=== PATIENT | female | born 1950 | race Caucasian/White ===

== ENCOUNTER 2017-10-21 11:03 | Inpatient (IN) | payer BC ==
[2017-10-21] MEDS: LACTATED RINGER S IV (12:00)
[2017-10-21 12:07] LABS: ADD MAN DIFF? NO
[2017-10-21 12:10] LABS: BASOPHILS % 0.4 % (0.0-2.0); EOSINOPHILS # 0.1 10^3/ul (0.0-0.5); EOSINOPHILS % 0.9 % (0.0-7.0); HEMATOCRIT 40.9 % (37.0-47.0); HEMOGLOBIN 13.8 g/dl (12.0-16.0); LYMPHOCYTES # 1.3 10^3/ul (0.8-2.9); LYMPHOCYTES % 11.7 % (15.0-51.0); MEAN CORPUSCULAR HEMOGLOBIN 28.8 pg (29.0-33.0); MEAN CORPUSCULAR HGB CONC 33.7 g/dl (32.0-37.0); MEAN CORPUSCULAR VOLUME 85.2 fl (82.0-101.0); MEAN PLATELET VOLUME 8.7 fl (7.4-10.4); MONOCYTE # 0.9 10^3/ul (0.3-0.9); MONOCYTES % 7.7 % (0.0-11.0); NEUTROPHIL # 8.7 10^3/ul (1.6-7.5); NEUTROPHILS % 79.1 % (39.0-77.0); PLATELET COUNT 267 10^3/UL (140-415); RED CELL DISTRIBUTION WIDTH 12.7 % (11.5-14.5)
[2017-10-21 12:27] LABS: LACTIC ACID 1.1 mmol/L (0.5-2.0)
[2017-10-21 12:29] LABS: INR 0.92; PROTIME 12.4 Sec (11.9-14.9)
[2017-10-21] MEDS ORDERED: ACETAMINOPHEN 325 MG TAB PO (12:30)
[2017-10-21] MEDS ORDERED: ONDANSETRON 4 MG INJ IV (12:30)
[2017-10-21 12:31] LABS: ALANINE AMINOTRANSFERASE 27 IU/L (13-69); ALBUMIN 4.3 g/dl (3.3-4.9); ALKALINE PHOSPHATASE 102 IU/L (42-121); ANION GAP 16 (8-16); ASPARTATE AMINO TRANSFERASE 21 IU/L (15-46); BILIRUBIN,INDIRECT 0.3 mg/dl (0-1.1); BILIRUBIN,TOTAL 0.3 mg/dl (0.2-1.3); BLOOD UREA NITROGEN 12 mg/dl (7-20); CARBON DIOXIDE 25 mmol/L (21-31); CHLORIDE 105 mmol/L (97-110); GLUCOSE 95 mg/dl (70-220); PARTIAL THROMBOPLASTIN TIME 28.6 Sec (25.0-35.0); SODIUM 142 mmol/L (135-144); TOTAL PROTEIN 7.6 g/dl (6.1-8.1)
[2017-10-21 12:45] LABS: TROPONIN-I < 0.012 ng/ml (0.00-0.12)
[2017-10-21] MEDS: CEFEPIME 2GM/50 ML (PMX) 50 ML IVPB ×2 (13:06→21:46)
[2017-10-21 13:25] LABS: LACTIC ACID 0.9 mmol/L (0.5-2.0)
[2017-10-21] MEDS: VANCOMYCIN 1 GM (PMX) 250 ML IVPB (13:29)
[2017-10-21] MEDS ORDERED: NITROGLYCERIN (SL) 0.4 MG TAB SL (14:00)
[2017-10-21] MEDS ORDERED: NA PHOSPHATE/BIPHOS 133 ML ENEMA PR (14:00)
[2017-10-21] MEDS ORDERED: NACL 0.9% 3 ML SYG IV (14:00)
[2017-10-21] MEDS: ALBUTEROL HFA 8 GM INHALER INH ×3 (14:00→21:50)
[2017-10-21] MEDS ORDERED: DOCUSATE SODIUM 100 MG CAP PO (14:00)
[2017-10-21] MEDS ORDERED: VANCOMYCIN IV PER PHARMACY XX (14:00)
[2017-10-21] MEDS ORDERED: hydrOXYzine HCL 10 MG TAB PO (14:00)
[2017-10-21] MEDS ORDERED: LORAZEPAM 2 MG INJ IV (14:00)
[2017-10-21] MEDS ORDERED: hydrALAzine 20 MG INJ IV (14:00)
[2017-10-21] MEDS ORDERED: CEFEPIME 2GM/50 ML (PMX) 50 ML IVPB (14:00)
[2017-10-21 15:02] LABS: ADD UMIC YES; UR ASCORBIC ACID NEGATIVE (NEGATIVE); UR BILIRUBIN (Dip) NEGATIVE (NEGATIVE); UR BLOOD (Dip) NEGATIVE (NEGATIVE); UR CLARITY CLEAR (CLEAR); UR COLOR YELLOW (YELLOW); UR GLUCOSE (Dip) NEGATIVE (NEGATIVE); UR KETONES (Dip) NEGATIVE (NEGATIVE); UR LEUKOCYTE ESTERASE (Dip) 1+ Leu/ul (NEGATIVE); UR NITRITE (Dip) NEGATIVE (NEGATIVE); UR RBC 1 /HPF (0-5); UR SPECIFIC GRAVITY (Dip) 1.005 (1.003-1.030); UR TOTAL PROTEIN (Dip) NEGATIVE (NEGATIVE); UR UROBILINOGEN (Dip) NEGATIVE (NEGATIVE); UR WBC 5 /HPF (0-5)
[2017-10-21 15:17] LABS: LACTIC ACID 0.8 mmol/L (0.5-2.0)
[2017-10-21] MEDS: ALBUTEROL/IPRATROPIUM (NEB) 3 ML AMP HHN (15:40)
[2017-10-21] MEDS: SOD CHLORIDE 0.45% 1,000 ML IV (16:04)
[2017-10-21 17:24] LABS: LACTIC ACID 3.1 mmol/L (0.5-2.0)
[2017-10-21 20:11] LABS: LACTIC ACID 0.8 mmol/L (0.5-2.0)
[2017-10-21] MEDS: HEPARIN 5,000 UNIT/0.5 ML VIAL SC (21:44)
[2017-10-21] MEDS: SALMETEROL/FLUTICASONE 100/50 INHA INH (21:45)
[2017-10-21] MEDS: RANITIDINE 150 MG TAB PO (21:49)
[2017-10-21] MEDS: DOCUSATE SODIUM 100 MG CAP PO (21:49)
[2017-10-21] MEDS: LEVETIRACETAM 500 MG TAB PO (21:50)
[2017-10-21 22:31] LABS: LACTIC ACID 0.8 mmol/L (0.5-2.0)
[2017-10-22] MEDS: ALBUTEROL HFA 8 GM INHALER INH ×6 (02:05→21:19)
[2017-10-22 02:50] LABS: LACTIC ACID 1.4 mmol/L (0.5-2.0)
[2017-10-22] MEDS: SOD CHLORIDE 0.45% 1,000 ML IV ×2 (02:57→10:04)
[2017-10-22 06:30] LABS: ADD MAN DIFF? NO
[2017-10-22 06:45] LABS: BASOPHILS % 0.8 % (0.0-2.0); EOSINOPHILS # 0.3 10^3/ul (0.0-0.5); EOSINOPHILS % 6.3 % (0.0-7.0); HEMATOCRIT 37.9 % (37.0-47.0); HEMOGLOBIN 12.5 g/dl (12.0-16.0); LYMPHOCYTES # 1.1 10^3/ul (0.8-2.9); LYMPHOCYTES % 27.3 % (15.0-51.0); MEAN CORPUSCULAR HEMOGLOBIN 29.4 pg (29.0-33.0); MEAN CORPUSCULAR VOLUME 89.2 fl (82.0-101.0); MEAN PLATELET VOLUME 8.4 fl (7.4-10.4); MONOCYTE # 0.4 10^3/ul (0.3-0.9); NEUTROPHIL # 2.3 10^3/ul (1.6-7.5); NEUTROPHILS % 56.3 % (39.0-77.0); PLATELET COUNT 219 10^3/UL (140-415); RED BLOOD COUNT 4.25 10^6/ul (4.20-5.40); RED CELL DISTRIBUTION WIDTH 12.8 % (11.5-14.5)
[2017-10-22 07:03] LABS: CHOLESTEROL 184 mg/dl (100-200)
[2017-10-22 07:03] LABS: CHOL/HDL RATIO 3.1 RATIO; HDL CHOLESTEROL 58 mg/dl (33-92); LDL CHOLESTEROL,CALCULATED 95 mg/dl; TRIGLYCERIDES 157 mg/dl (0-149)
[2017-10-22 07:13] LABS: ANION GAP 11 (8-16); BLOOD UREA NITROGEN 9 mg/dl (7-20); CALCIUM 9.6 mg/dl (8.4-10.2); CARBON DIOXIDE 31 mmol/L (21-31); CHLORIDE 110 mmol/L (97-110); CREATININE 0.66 mg/dl (0.44-1.00); GLUCOSE 114 mg/dl (70-220); MAGNESIUM 2.3 mg/dl (1.7-2.5); PHOSPHORUS 3.3 mg/dl (2.5-4.9); POTASSIUM 4.8 mmol/L (3.5-5.1); SODIUM 147 mmol/L (135-144)
[2017-10-22 07:17] LABS: LACTIC ACID 1.5 mmol/L (0.5-2.0)
[2017-10-22 07:34] LABS: THYROID STIMULATING HORMONE 0.807 MIU/L (0.465-4.680)
[2017-10-22 07:48] LABS: HEMOGLOBIN A1C 5.8 % (0-5.9)
[2017-10-22] MEDS: CEFEPIME 2GM/50 ML (PMX) 50 ML IVPB ×2 (09:27→21:07)
[2017-10-22] MEDS: SALMETEROL/FLUTICASONE 100/50 INHA INH ×2 (09:27→21:18)
[2017-10-22] MEDS: LEVETIRACETAM 500 MG TAB PO ×2 (09:27→21:06)
[2017-10-22] MEDS: DOCUSATE SODIUM 100 MG CAP PO ×2 (09:27→21:00)
[2017-10-22] MEDS: HEPARIN 5,000 UNIT/0.5 ML VIAL SC ×2 (10:19→21:17)
[2017-10-22 14:21] LABS: LACTIC ACID 1.4 mmol/L (0.5-2.0)
[2017-10-22] MEDS ORDERED: CEPASTAT LOZENGE MT (16:30)
[2017-10-22] MEDS: GUAIFENESIN 20 MG/ML 5ML CUP PO (18:14)
[2017-10-22] MEDS: RANITIDINE 150 MG TAB PO (21:06)
[2017-10-23] MEDS: SOD CHLORIDE 0.45% 1,000 ML IV ×2 (01:21→16:19)
[2017-10-23] MEDS: ALBUTEROL HFA 8 GM INHALER INH ×6 (01:21→22:12)
[2017-10-23 06:26] LABS: ADD MAN DIFF? NO
[2017-10-23 06:35] LABS: BASOPHILS % 0.8 % (0.0-2.0); EOSINOPHILS # 0.3 10^3/ul (0.0-0.5); HEMATOCRIT 36.5 % (37.0-47.0); HEMOGLOBIN 12.2 g/dl (12.0-16.0); LYMPHOCYTES % 25.1 % (15.0-51.0); MEAN CORPUSCULAR HGB CONC 33.4 g/dl (32.0-37.0); MEAN CORPUSCULAR VOLUME 86.7 fl (82.0-101.0); MEAN PLATELET VOLUME 8.8 fl (7.4-10.4); MONOCYTE # 0.3 10^3/ul (0.3-0.9); NEUTROPHIL # 2.2 10^3/ul (1.6-7.5); NEUTROPHILS % 57.6 % (39.0-77.0); PLATELET COUNT 226 10^3/UL (140-415); RED BLOOD COUNT 4.21 10^6/ul (4.20-5.40); RED CELL DISTRIBUTION WIDTH 12.9 % (11.5-14.5)
[2017-10-23 06:35] LABS: WHITE BLOOD COUNT 3.9 10^3/ul (4.8-10.8)
[2017-10-23 07:21] LABS: ANION GAP 15 (8-16); BLOOD UREA NITROGEN 9 mg/dl (7-20); CALCIUM 9.8 mg/dl (8.4-10.2); CARBON DIOXIDE 25 mmol/L (21-31); CHLORIDE 108 mmol/L (97-110); CREATININE 0.62 mg/dl (0.44-1.00); GLUCOSE 113 mg/dl (70-220); SODIUM 144 mmol/L (135-144)
[2017-10-23] MEDS: DOCUSATE SODIUM 100 MG CAP PO ×2 (09:00→21:00)
[2017-10-23] MEDS: LEVETIRACETAM 500 MG TAB PO ×2 (09:31→20:59)
[2017-10-23] MEDS: GUAIFENESIN 20 MG/ML 5ML CUP PO (09:31)
[2017-10-23] MEDS: SALMETEROL/FLUTICASONE 100/50 INHA INH ×2 (09:32→21:01)
[2017-10-23] MEDS: CEFEPIME 2GM/50 ML (PMX) 50 ML IVPB ×2 (09:32→20:58)
[2017-10-23] MEDS: HEPARIN 5,000 UNIT/0.5 ML VIAL SC (09:47)
[2017-10-23] MEDS: ALBUTEROL/IPRATROPIUM (NEB) 3 ML AMP HHN ×3 (13:16→20:48)
[2017-10-23] MEDS: RANITIDINE 150 MG TAB PO (20:59)
[2017-10-24] MEDS: ALBUTEROL HFA 8 GM INHALER INH ×6 (02:20→23:00)
[2017-10-24] MEDS: SOD CHLORIDE 0.45% 1,000 ML IV ×2 (05:02→08:17)
[2017-10-24 06:14] LABS: ADD MAN DIFF? NO
[2017-10-24 06:17] LABS: BASOPHILS % 0.7 % (0.0-2.0); EOSINOPHILS # 0.3 10^3/ul (0.0-0.5); EOSINOPHILS % 6.4 % (0.0-7.0); HEMATOCRIT 37.4 % (37.0-47.0); HEMOGLOBIN 12.5 g/dl (12.0-16.0); LYMPHOCYTES % 21.1 % (15.0-51.0); MEAN CORPUSCULAR HEMOGLOBIN 29.1 pg (29.0-33.0); MEAN CORPUSCULAR HGB CONC 33.4 g/dl (32.0-37.0); MEAN PLATELET VOLUME 8.8 fl (7.4-10.4); MONOCYTE # 0.4 10^3/ul (0.3-0.9); MONOCYTES % 8.7 % (0.0-11.0); NEUTROPHIL # 2.8 10^3/ul (1.6-7.5); NEUTROPHILS % 62.7 % (39.0-77.0); PLATELET COUNT 240 10^3/UL (140-415); RED CELL DISTRIBUTION WIDTH 12.7 % (11.5-14.5)
[2017-10-24 06:17] LABS: WHITE BLOOD COUNT 4.5 10^3/ul (4.8-10.8)
[2017-10-24 06:52] LABS: ANION GAP 12 (8-16); BLOOD UREA NITROGEN 11 mg/dl (7-20); CALCIUM 9.7 mg/dl (8.4-10.2); CARBON DIOXIDE 27 mmol/L (21-31); CHLORIDE 108 mmol/L (97-110); CREATININE 0.66 mg/dl (0.44-1.00); GLUCOSE 100 mg/dl (70-220); POTASSIUM 4.2 mmol/L (3.5-5.1); SODIUM 143 mmol/L (135-144)
[2017-10-24] MEDS ORDERED: NEOSTIGMINE 3 MG/3 ML SYRINGE (07:00)
[2017-10-24] MEDS ORDERED: GLYCOPYRROLATE 0.4 MG INJ (07:00)
[2017-10-24] MEDS ORDERED: CEFAZOLIN 1 GM INJ (07:00)
[2017-10-24] MEDS: LEVETIRACETAM 500 MG TAB PO ×2 (09:00→23:25)
[2017-10-24] MEDS: DOCUSATE SODIUM 100 MG CAP PO ×2 (09:00→23:25)
[2017-10-24] MEDS: CEFEPIME 2GM/50 ML (PMX) 50 ML IVPB (09:43)
[2017-10-24] MEDS: SALMETEROL/FLUTICASONE 100/50 INHA INH ×2 (09:44→22:35)
[2017-10-24] MEDS ORDERED: morphine 10 MG INJ (15:09)
[2017-10-24] MEDS ORDERED: PROPOFOL 100 ML (15:22)
[2017-10-24] MEDS ORDERED: ROCURONIUM 50 MG INJ (15:22)
[2017-10-24] MEDS ORDERED: PHENYLephrine (100 MCG/ML) 5ML SYG ×2 (15:26→17:01)
[2017-10-24] MEDS: LIDOCAINE 1%/EPI 30 ML INJ (16:20)
[2017-10-24] MEDS: BUPIVACAINE 0.5% (SDV) 30 ML INJ (16:20)
[2017-10-24] MEDS ORDERED: DEXAMETHASONE 4 MG/ML 1 ML INJ (16:28)
[2017-10-24] MEDS ORDERED: ONDANSETRON 4 MG INJ (16:28)
[2017-10-24] MEDS ORDERED: KETOROLAC 30 MG INJ (17:42)
[2017-10-24] MEDS ORDERED: KETOROLAC 30 MG INJ IV ×2 (18:00→18:30)
[2017-10-24] MEDS ORDERED: ALBUTEROL 0.083% (NEB) 2.5 MG/3 ML AMP HHN (18:30)
[2017-10-24] MEDS ORDERED: FENTAnyl 50 MCG/ML VIAL IV (18:30)
[2017-10-24] MEDS ORDERED: hydrALAzine 20 MG INJ IV (18:30)
[2017-10-24] MEDS ORDERED: METOCLOPRAMIDE 10 MG INJ IV (18:30)
[2017-10-24] MEDS ORDERED: MIDAZOLAM 1 MG/ML 2 ML INJ IV (18:30)
[2017-10-24] MEDS ORDERED: HYDROmorphONE (0.2 MG/ML) 10ML SYG IV ×2 (18:30)
[2017-10-24] MEDS ORDERED: EPHEDrine SULFATE 50 MG/5 ML SYG IV (18:30)
[2017-10-24] MEDS ORDERED: KETOROLAC 15 MG INJ IV (18:30)
[2017-10-24] MEDS ORDERED: LABETALOL HCL 20MG INJ IV (18:30)
[2017-10-24] MEDS ORDERED: MEPERIDINE 25 MG INJ IV (18:30)
[2017-10-24] MEDS ORDERED: ONDANSETRON 4 MG INJ IV (18:30)
[2017-10-24] MEDS ORDERED: DIPHENHYDRAMINE 50 MG INJ IV (18:30)
[2017-10-24] MEDS: FENTAnyl 50 MCG/ML VIAL IV ×3 (18:35→20:06)
[2017-10-24] MEDS: HYDROmorphONE (0.2 MG/ML) 10ML SYG IV ×2 (21:56→22:21)
[2017-10-24] MEDS: LACTATED RINGER'S 1,000 ML IV (23:01)
[2017-10-24] MEDS: RANITIDINE 150 MG TAB PO (23:19)
[2017-10-25] MEDS: HYDROCODONE/APAP (5/325) TAB PO ×4 (02:06→21:42)
[2017-10-25] MEDS: ALBUTEROL HFA 8 GM INHALER INH ×6 (02:26→21:41)
[2017-10-25] MEDS: LACTATED RINGER'S 1,000 ML IV ×2 (03:51→13:54)
[2017-10-25] MEDS: ENOXAPARIN 40 MG/0.4 ML SYG SC (06:33)
[2017-10-25] MEDS: SALMETEROL/FLUTICASONE 100/50 INHA INH ×2 (08:01→20:01)
[2017-10-25] MEDS: DOCUSATE SODIUM 100 MG CAP PO ×2 (08:01→20:01)
[2017-10-25] MEDS: LEVETIRACETAM 500 MG TAB PO ×2 (08:01→20:00)
[2017-10-25 08:52] LABS: ADD MAN DIFF? NO
[2017-10-25 09:00] LABS: BASOPHILS % 0.2 % (0.0-2.0); EOSINOPHILS % 0.2 % (0.0-7.0); HEMATOCRIT 30.9 % (37.0-47.0); HEMOGLOBIN 9.9 g/dl (12.0-16.0); LYMPHOCYTES % 10.4 % (15.0-51.0); MEAN CORPUSCULAR HEMOGLOBIN 28.6 pg (29.0-33.0); MEAN CORPUSCULAR VOLUME 89.3 fl (82.0-101.0); MEAN PLATELET VOLUME 8.8 fl (7.4-10.4); MONOCYTE # 0.6 10^3/ul (0.3-0.9); NEUTROPHIL # 7.5 10^3/ul (1.6-7.5); NEUTROPHILS % 81.9 % (39.0-77.0); PLATELET COUNT 217 10^3/UL (140-415); RED BLOOD COUNT 3.46 10^6/ul (4.20-5.40); RED CELL DISTRIBUTION WIDTH 12.9 % (11.5-14.5)
[2017-10-25 09:00] LABS: WHITE BLOOD COUNT 9.2 10^3/ul (4.8-10.8)
[2017-10-25 10:00] LABS: ANION GAP 12 (8-16); BLOOD UREA NITROGEN 14 mg/dl (7-20); CALCIUM 9.2 mg/dl (8.4-10.2); CARBON DIOXIDE 27 mmol/L (21-31); CHLORIDE 103 mmol/L (97-110); CREATININE 0.72 mg/dl (0.44-1.00); GLUCOSE 114 mg/dl (70-220); POTASSIUM 4.5 mmol/L (3.5-5.1); SODIUM 137 mmol/L (135-144)
[2017-10-25] MEDS: morphine 2 MG INJ IV ×3 (11:03→19:57)
[2017-10-25] MEDS: ONDANSETRON 4 MG INJ IV (11:30)
[2017-10-25] MEDS: RANITIDINE 150 MG TAB PO (20:00)
[2017-10-26] MEDS: morphine 2 MG INJ IV (01:38)
[2017-10-26] MEDS: LACTATED RINGER'S 1,000 ML IV (01:39)
[2017-10-26] MEDS: ALBUTEROL HFA 8 GM INHALER INH ×5 (02:07→23:39)
[2017-10-26] MEDS: HYDROCODONE/APAP (5/325) TAB PO ×3 (05:48→20:24)
[2017-10-26] MEDS: ENOXAPARIN 40 MG/0.4 ML SYG SC (06:08)
[2017-10-26 08:25] LABS: ADD MAN DIFF? NO
[2017-10-26] MEDS: DOCUSATE SODIUM 100 MG CAP PO ×2 (08:36→20:24)
[2017-10-26] MEDS: SALMETEROL/FLUTICASONE 100/50 INHA INH ×2 (08:36→20:25)
[2017-10-26] MEDS: LEVETIRACETAM 500 MG TAB PO ×2 (08:36→20:24)
[2017-10-26 08:37] LABS: BASOPHILS % 0.6 % (0.0-2.0); EOSINOPHILS # 0.2 10^3/ul (0.0-0.5); EOSINOPHILS % 2.7 % (0.0-7.0); HEMATOCRIT 26.1 % (37.0-47.0); HEMOGLOBIN 8.5 g/dl (12.0-16.0); LYMPHOCYTES # 0.8 10^3/ul (0.8-2.9); LYMPHOCYTES % 12.2 % (15.0-51.0); MEAN CORPUSCULAR HEMOGLOBIN 28.9 pg (29.0-33.0); MEAN CORPUSCULAR HGB CONC 32.6 g/dl (32.0-37.0); MEAN CORPUSCULAR VOLUME 88.8 fl (82.0-101.0); MEAN PLATELET VOLUME 9.1 fl (7.4-10.4); MONOCYTE # 0.5 10^3/ul (0.3-0.9); MONOCYTES % 8.4 % (0.0-11.0); NEUTROPHIL # 4.8 10^3/ul (1.6-7.5); NEUTROPHILS % 75.6 % (39.0-77.0); PLATELET COUNT 182 10^3/UL (140-415); RED BLOOD COUNT 2.94 10^6/ul (4.20-5.40)
[2017-10-26 08:37] LABS: WHITE BLOOD COUNT 6.3 10^3/ul (4.8-10.8)
[2017-10-26 08:53] LABS: MAGNESIUM 1.8 mg/dl (1.7-2.5)
[2017-10-26 08:58] LABS: ANION GAP 9 (8-16); BLOOD UREA NITROGEN 10 mg/dl (7-20); CALCIUM 8.6 mg/dl (8.4-10.2); CARBON DIOXIDE 29 mmol/L (21-31); CHLORIDE 103 mmol/L (97-110); CREATININE 0.65 mg/dl (0.44-1.00); GLUCOSE 105 mg/dl (70-220); SODIUM 137 mmol/L (135-144)
[2017-10-26] MEDS: FERROUS SULFATE (EC) 325 MG TAB PO ×2 (16:54→20:24)
[2017-10-26] MEDS: BISACODYL (EC) 5 MG TAB PO (16:55)
[2017-10-26] MEDS: RANITIDINE 150 MG TAB PO (20:24)
[2017-10-27] MEDS: ONDANSETRON 4 MG INJ IV ×3 (00:39→20:09)
[2017-10-27] MEDS: morphine 2 MG INJ IV (00:47)
[2017-10-27] MEDS: ALBUTEROL HFA 8 GM INHALER INH ×6 (02:11→20:14)
[2017-10-27] MEDS: HYDROCODONE/APAP (5/325) TAB PO ×3 (06:42→20:00)
[2017-10-27 07:49] LABS: ADD MAN DIFF? NO
[2017-10-27 07:56] LABS: BASOPHILS % 0.7 % (0.0-2.0); EOSINOPHILS # 0.2 10^3/ul (0.0-0.5); EOSINOPHILS % 3.2 % (0.0-7.0); HEMATOCRIT 23.9 % (37.0-47.0); HEMOGLOBIN 7.9 g/dl (12.0-16.0); LYMPHOCYTES # 0.9 10^3/ul (0.8-2.9); LYMPHOCYTES % 15.6 % (15.0-51.0); MEAN CORPUSCULAR HEMOGLOBIN 29.5 pg (29.0-33.0); MEAN CORPUSCULAR HGB CONC 33.1 g/dl (32.0-37.0); MEAN CORPUSCULAR VOLUME 89.2 fl (82.0-101.0); MONOCYTE # 0.5 10^3/ul (0.3-0.9); MONOCYTES % 8.3 % (0.0-11.0); NEUTROPHILS % 71.7 % (39.0-77.0); PLATELET COUNT 200 10^3/UL (140-415); RED BLOOD COUNT 2.68 10^6/ul (4.20-5.40)
[2017-10-27 07:56] LABS: WHITE BLOOD COUNT 5.6 10^3/ul (4.8-10.8)
[2017-10-27 08:26] LABS: ANION GAP 11 (8-16); BLOOD UREA NITROGEN 8 mg/dl (7-20); CALCIUM 8.7 mg/dl (8.4-10.2); CARBON DIOXIDE 30 mmol/L (21-31); CHLORIDE 102 mmol/L (97-110); CREATININE 0.56 mg/dl (0.44-1.00); GLUCOSE 109 mg/dl (70-220); SODIUM 139 mmol/L (135-144)
[2017-10-27] MEDS: DOCUSATE SODIUM 100 MG CAP PO ×2 (08:45→20:00)
[2017-10-27] MEDS: SALMETEROL/FLUTICASONE 100/50 INHA INH ×2 (08:45→20:14)
[2017-10-27] MEDS: FERROUS SULFATE (EC) 325 MG TAB PO ×2 (08:45→20:00)
[2017-10-27] MEDS: LEVETIRACETAM 500 MG TAB PO ×2 (08:46→20:00)
[2017-10-27 12:14] LABS: IRON 21 ug/dl (35-150)
[2017-10-27 12:23] LABS: % IRON SATURATION 9 % SAT (22-52); TOTAL IRON BINDING CAPACITY 243 ug/dl (241-421)
[2017-10-27] MEDS: MAGNESIUM HYDROXIDE 30ML CUP PO (13:33)
[2017-10-27] MEDS: RANITIDINE 150 MG TAB PO (20:00)
[2017-10-27] MEDS: FLUCONAZOLE 200 MG TAB PO (20:09)
[2017-10-28] MEDS: HYDROCODONE/APAP (5/325) TAB PO ×3 (01:12→19:06)
[2017-10-28] MEDS: ALBUTEROL HFA 8 GM INHALER INH ×6 (02:00→22:49)
[2017-10-28] MEDS: ONDANSETRON 4 MG INJ IV ×2 (06:59→22:46)
[2017-10-28 08:19] LABS: ADD MAN DIFF? NO
[2017-10-28 08:23] LABS: WHITE BLOOD COUNT 5.1 10^3/ul (4.8-10.8)
[2017-10-28 08:23] LABS: BASOPHILS % 0.6 % (0.0-2.0); EOSINOPHILS # 0.2 10^3/ul (0.0-0.5); EOSINOPHILS % 3.7 % (0.0-7.0); HEMATOCRIT 24.7 % (37.0-47.0); LYMPHOCYTES # 0.8 10^3/ul (0.8-2.9); LYMPHOCYTES % 15.4 % (15.0-51.0); MEAN CORPUSCULAR HEMOGLOBIN 29.1 pg (29.0-33.0); MEAN CORPUSCULAR HGB CONC 32.4 g/dl (32.0-37.0); MEAN CORPUSCULAR VOLUME 89.8 fl (82.0-101.0); MEAN PLATELET VOLUME 9.1 fl (7.4-10.4); MONOCYTE # 0.5 10^3/ul (0.3-0.9); MONOCYTES % 10.4 % (0.0-11.0); NEUTROPHIL # 3.6 10^3/ul (1.6-7.5); NEUTROPHILS % 69.5 % (39.0-77.0); PLATELET COUNT 225 10^3/UL (140-415); RED BLOOD COUNT 2.75 10^6/ul (4.20-5.40)
[2017-10-28 09:00] LABS: ANION GAP 9 (8-16); BLOOD UREA NITROGEN 6 mg/dl (7-20); CALCIUM 8.9 mg/dl (8.4-10.2); CARBON DIOXIDE 33 mmol/L (21-31); CHLORIDE 102 mmol/L (97-110); CREATININE 0.62 mg/dl (0.44-1.00); GLUCOSE 110 mg/dl (70-220); POTASSIUM 4.1 mmol/L (3.5-5.1); SODIUM 140 mmol/L (135-144)
[2017-10-28] MEDS: SALMETEROL/FLUTICASONE 100/50 INHA INH ×2 (09:56→20:38)
[2017-10-28] MEDS: DOCUSATE SODIUM 100 MG CAP PO ×2 (09:56→20:37)
[2017-10-28] MEDS: FLUCONAZOLE 200 MG TAB PO ×2 (09:57→20:37)
[2017-10-28] MEDS: LEVETIRACETAM 500 MG TAB PO ×2 (09:57→20:37)
[2017-10-28] MEDS: FERROUS SULFATE (EC) 325 MG TAB PO ×2 (09:58→20:37)
[2017-10-28] MEDS: morphine 2 MG INJ IV (10:40)
[2017-10-28] MEDS: MAGNESIUM HYDROXIDE 30ML CUP PO (19:11)
[2017-10-28] MEDS: RANITIDINE 150 MG TAB PO (20:37)
[2017-10-28] MEDS: BISACODYL 10 MG SUPP PR (22:46)
[2017-10-29] MEDS: HYDROCODONE/APAP (5/325) TAB PO (01:56)
[2017-10-29] MEDS: ALBUTEROL HFA 8 GM INHALER INH ×6 (02:00→21:47)
[2017-10-29 05:44] LABS: ADD MAN DIFF? NO
[2017-10-29 05:52] LABS: BASOPHILS % 0.6 % (0.0-2.0); EOSINOPHILS # 0.2 10^3/ul (0.0-0.5); EOSINOPHILS % 3.7 % (0.0-7.0); HEMATOCRIT 23.6 % (37.0-47.0); HEMOGLOBIN 7.8 g/dl (12.0-16.0); LYMPHOCYTES # 0.9 10^3/ul (0.8-2.9); LYMPHOCYTES % 19.9 % (15.0-51.0); MEAN CORPUSCULAR HEMOGLOBIN 29.7 pg (29.0-33.0); MEAN CORPUSCULAR HGB CONC 33.1 g/dl (32.0-37.0); MEAN CORPUSCULAR VOLUME 89.7 fl (82.0-101.0); MEAN PLATELET VOLUME 8.5 fl (7.4-10.4); MONOCYTE # 0.4 10^3/ul (0.3-0.9); MONOCYTES % 9.3 % (0.0-11.0); NEUTROPHIL # 3.1 10^3/ul (1.6-7.5); NEUTROPHILS % 66.1 % (39.0-77.0); PLATELET COUNT 244 10^3/UL (140-415); RED BLOOD COUNT 2.63 10^6/ul (4.20-5.40)
[2017-10-29 05:52] LABS: WHITE BLOOD COUNT 4.6 10^3/ul (4.8-10.8)
[2017-10-29 06:35] LABS: ANION GAP 10 (8-16); BLOOD UREA NITROGEN 7 mg/dl (7-20); CALCIUM 8.9 mg/dl (8.4-10.2); CARBON DIOXIDE 33 mmol/L (21-31); CHLORIDE 101 mmol/L (97-110); CREATININE 0.63 mg/dl (0.44-1.00); GLUCOSE 112 mg/dl (70-220); POTASSIUM 4.1 mmol/L (3.5-5.1); SODIUM 140 mmol/L (135-144)
[2017-10-29] MEDS: NA PHOSPHATE/BIPHOS 133 ML ENEMA PR (06:38)
[2017-10-29] MEDS: FERROUS SULFATE (EC) 325 MG TAB PO (08:39)
[2017-10-29] MEDS: DOCUSATE SODIUM 100 MG CAP PO ×2 (08:39→21:46)
[2017-10-29] MEDS: FLUCONAZOLE 200 MG TAB PO ×2 (08:39→21:46)
[2017-10-29] MEDS: LEVETIRACETAM 500 MG TAB PO ×2 (08:39→21:46)
[2017-10-29] MEDS: SALMETEROL/FLUTICASONE 100/50 INHA INH ×2 (08:40→21:46)
[2017-10-29] MEDS: POLYETHYLENE GLYCOL 17 GM PACKET PO (08:40)
[2017-10-29] MEDS: FUROSEMIDE 20 MG INJ IV (11:14)
[2017-10-29] MEDS: LACTULOSE 30ML CUP PO ×2 (11:17→18:03)
[2017-10-29] MEDS: ONDANSETRON 4 MG INJ IV ×2 (11:18→18:03)
[2017-10-29] MEDS: FERROUS GLUCONATE (EC) 325 MG TAB PO (12:52)
[2017-10-29] MEDS: ACETAMINOPHEN 325 MG TAB PO (18:07)
[2017-10-29] MEDS: ALPRAZOLAM 0.25 MG TAB PO (18:07)
[2017-10-29] MEDS: RANITIDINE 150 MG TAB PO (21:46)
[2017-10-30] MEDS: ALBUTEROL HFA 8 GM INHALER INH ×3 (01:53→09:40)
[2017-10-30] MEDS: ACETAMINOPHEN 325 MG TAB PO ×2 (03:45→13:26)
[2017-10-30] MEDS: ALPRAZOLAM 0.25 MG TAB PO ×3 (03:45→21:40)
[2017-10-30] MEDS: LACTULOSE 30ML CUP PO ×4 (06:15→18:29)
[2017-10-30 06:26] LABS: HEMATOCRIT 24.5 % (37.0-47.0); HEMOGLOBIN 8.2 g/dl (12.0-16.0); MEAN CORPUSCULAR HEMOGLOBIN 29.7 pg (29.0-33.0); MEAN CORPUSCULAR HGB CONC 33.5 g/dl (32.0-37.0); MEAN CORPUSCULAR VOLUME 88.8 fl (82.0-101.0); MEAN PLATELET VOLUME 8.8 fl (7.4-10.4); PLATELET COUNT 295 10^3/UL (140-415); RED BLOOD COUNT 2.76 10^6/ul (4.20-5.40); RED CELL DISTRIBUTION WIDTH 13.2 % (11.5-14.5)
[2017-10-30 06:26] LABS: WHITE BLOOD COUNT 7.6 10^3/ul (4.8-10.8)
[2017-10-30 06:40] LABS: ANION GAP 11 (8-16); BLOOD UREA NITROGEN 6 mg/dl (7-20); CARBON DIOXIDE 33 mmol/L (21-31); CHLORIDE 99 mmol/L (97-110); GLUCOSE 110 mg/dl (70-220); MAGNESIUM 2.1 mg/dl (1.7-2.5); PHOSPHORUS 3.2 mg/dl (2.5-4.9); POTASSIUM 3.8 mmol/L (3.5-5.1); SODIUM 139 mmol/L (135-144)
[2017-10-30 06:51] LABS: ADD MAN DIFF? YES
[2017-10-30 06:56] LABS: BASOPHILS % 0.3 % (0.0-2.0); EOSINOPHILS # 0.1 10^3/ul (0.0-0.5); EOSINOPHILS % 0.9 % (0.0-7.0); LYMPHOCYTES # 0.8 10^3/ul (0.8-2.9); LYMPHOCYTES % 10.3 % (15.0-51.0); MONOCYTE # 0.5 10^3/ul (0.3-0.9); MONOCYTES % 7.1 % (0.0-11.0); NEUTROPHIL # 6.1 10^3/ul (1.6-7.5); NEUTROPHILS % 80.9 % (39.0-77.0)
[2017-10-30] MEDS: POLYETHYLENE GLYCOL 17 GM PACKET PO (09:30)
[2017-10-30] MEDS: DOCUSATE SODIUM 100 MG CAP PO ×2 (09:30→21:40)
[2017-10-30] MEDS: FLUCONAZOLE 200 MG TAB PO ×2 (09:30→21:40)
[2017-10-30] MEDS: LEVETIRACETAM 500 MG TAB PO ×2 (09:30→21:40)
[2017-10-30] MEDS: FERROUS GLUCONATE (EC) 325 MG TAB PO (09:30)
[2017-10-30] MEDS: SALMETEROL/FLUTICASONE 100/50 INHA INH ×2 (09:32→21:40)
[2017-10-30] MEDS: ALBUTEROL/IPRATROPIUM (NEB) 3 ML AMP HHN ×2 (14:24→21:21)
[2017-10-30] MEDS: HYDROCODONE/APAP (5/325) TAB PO (19:34)
[2017-10-30] MEDS: ONDANSETRON 4 MG INJ IV (20:36)
[2017-10-30] MEDS: RANITIDINE 150 MG TAB PO (21:40)
[2017-10-31] MEDS: ALBUTEROL/IPRATROPIUM (NEB) 3 ML AMP HHN ×4 (02:00→20:17)
[2017-10-31 06:00] LABS: ADD MAN DIFF? NO
[2017-10-31] MEDS: LACTULOSE 30ML CUP PO ×4 (06:00→18:33)
[2017-10-31 06:08] LABS: WHITE BLOOD COUNT 5.6 10^3/ul (4.8-10.8)
[2017-10-31 06:08] LABS: BASOPHILS % 0.5 % (0.0-2.0); EOSINOPHILS # 0.2 10^3/ul (0.0-0.5); EOSINOPHILS % 3.7 % (0.0-7.0); HEMATOCRIT 25.7 % (37.0-47.0); HEMOGLOBIN 8.3 g/dl (12.0-16.0); LYMPHOCYTES # 0.8 10^3/ul (0.8-2.9); MEAN CORPUSCULAR HEMOGLOBIN 28.7 pg (29.0-33.0); MEAN CORPUSCULAR HGB CONC 32.3 g/dl (32.0-37.0); MEAN CORPUSCULAR VOLUME 88.9 fl (82.0-101.0); MEAN PLATELET VOLUME 8.7 fl (7.4-10.4); MONOCYTE # 0.4 10^3/ul (0.3-0.9); MONOCYTES % 7.8 % (0.0-11.0); NEUTROPHIL # 4.1 10^3/ul (1.6-7.5); NEUTROPHILS % 72.6 % (39.0-77.0); PLATELET COUNT 320 10^3/UL (140-415); RED BLOOD COUNT 2.89 10^6/ul (4.20-5.40); RED CELL DISTRIBUTION WIDTH 13.2 % (11.5-14.5)
[2017-10-31] MEDS: HYDROCODONE/APAP (5/325) TAB PO ×3 (06:48→21:52)
[2017-10-31 06:52] LABS: ANION GAP 11 (8-16); BLOOD UREA NITROGEN 4 mg/dl (7-20); CALCIUM 9.2 mg/dl (8.4-10.2); CARBON DIOXIDE 33 mmol/L (21-31); CHLORIDE 100 mmol/L (97-110); CREATININE 0.59 mg/dl (0.44-1.00); GLUCOSE 94 mg/dl (70-220); POTASSIUM 3.8 mmol/L (3.5-5.1); SODIUM 140 mmol/L (135-144)
[2017-10-31] MEDS: SALMETEROL/FLUTICASONE 100/50 INHA INH ×2 (09:00→21:00)
[2017-10-31] MEDS: FERROUS GLUCONATE (EC) 325 MG TAB PO (09:08)
[2017-10-31] MEDS: LEVETIRACETAM 500 MG TAB PO ×2 (09:08→21:51)
[2017-10-31] MEDS: FLUCONAZOLE 200 MG TAB PO (09:08)
[2017-10-31] MEDS: POLYETHYLENE GLYCOL 17 GM PACKET PO (09:08)
[2017-10-31] MEDS: DOCUSATE SODIUM 100 MG CAP PO ×2 (09:09→21:51)
[2017-10-31] MEDS: NA PHOSPHATE/BIPHOS 133 ML ENEMA PR (18:34)
[2017-10-31] MEDS: RANITIDINE 150 MG TAB PO (21:51)
[2017-10-31] MEDS: ALPRAZOLAM 0.25 MG TAB PO (23:26)
[2017-11-01] MEDS: ALBUTEROL/IPRATROPIUM (NEB) 3 ML AMP HHN ×4 (02:00→20:00)
[2017-11-01] MEDS: HYDROCODONE/APAP (5/325) TAB PO ×3 (04:29→22:09)
[2017-11-01] MEDS: LACTULOSE 30ML CUP PO ×2 (06:00)
[2017-11-01] MEDS: SALMETEROL/FLUTICASONE 100/50 INHA INH ×2 (09:00→21:04)
[2017-11-01 09:28] LABS: ADD MAN DIFF? NO
[2017-11-01 09:30] LABS: BASOPHIL # 0.1 10^3/ul (0.0-0.1); BASOPHILS % 0.9 % (0.0-2.0); EOSINOPHILS # 0.2 10^3/ul (0.0-0.5); EOSINOPHILS % 4.2 % (0.0-7.0); HEMATOCRIT 28.3 % (37.0-47.0); HEMOGLOBIN 9.1 g/dl (12.0-16.0); LYMPHOCYTES # 1.2 10^3/ul (0.8-2.9); LYMPHOCYTES % 20.9 % (15.0-51.0); MEAN CORPUSCULAR HEMOGLOBIN 28.6 pg (29.0-33.0); MEAN CORPUSCULAR HGB CONC 32.2 g/dl (32.0-37.0); MEAN PLATELET VOLUME 8.6 fl (7.4-10.4); MONOCYTE # 0.3 10^3/ul (0.3-0.9); NEUTROPHIL # 3.7 10^3/ul (1.6-7.5); NEUTROPHILS % 67.6 % (39.0-77.0); PLATELET COUNT 370 10^3/UL (140-415); RED BLOOD COUNT 3.18 10^6/ul (4.20-5.40); RED CELL DISTRIBUTION WIDTH 13.3 % (11.5-14.5)
[2017-11-01 09:30] LABS: WHITE BLOOD COUNT 5.5 10^3/ul (4.8-10.8)
[2017-11-01] MEDS: FERROUS GLUCONATE (EC) 325 MG TAB PO (09:31)
[2017-11-01] MEDS: POLYETHYLENE GLYCOL 17 GM PACKET PO (09:31)
[2017-11-01] MEDS: FLUCONAZOLE 200 MG TAB PO (09:31)
[2017-11-01] MEDS: DOCUSATE SODIUM 100 MG CAP PO ×2 (09:32→21:03)
[2017-11-01] MEDS: LEVETIRACETAM 500 MG TAB PO ×2 (09:32→21:03)
[2017-11-01 09:56] LABS: ANION GAP 13 (8-16); BLOOD UREA NITROGEN 4 mg/dl (7-20); CALCIUM 9.6 mg/dl (8.4-10.2); CARBON DIOXIDE 33 mmol/L (21-31); CHLORIDE 97 mmol/L (97-110); CREATININE 0.61 mg/dl (0.44-1.00); GLUCOSE 129 mg/dl (70-220); MAGNESIUM 2.1 mg/dl (1.7-2.5); PHOSPHORUS 2.9 mg/dl (2.5-4.9); POTASSIUM 4.1 mmol/L (3.5-5.1); SODIUM 139 mmol/L (135-144)
[2017-11-01] MEDS: RANITIDINE 150 MG TAB PO (21:03)
[2017-11-01] MEDS: ALPRAZOLAM 0.25 MG TAB PO (23:14)
[2017-11-02] MEDS: ALBUTEROL/IPRATROPIUM (NEB) 3 ML AMP HHN ×4 (02:00→20:00)
[2017-11-02] MEDS: HYDROCODONE/APAP (5/325) TAB PO ×2 (03:48→10:52)
[2017-11-02 06:05] LABS: ADD MAN DIFF? NO
[2017-11-02 06:09] LABS: EOSINOPHILS # 0.2 10^3/ul (0.0-0.5); EOSINOPHILS % 5.3 % (0.0-7.0); HEMATOCRIT 27.9 % (37.0-47.0); HEMOGLOBIN 8.9 g/dl (12.0-16.0); LYMPHOCYTES # 0.8 10^3/ul (0.8-2.9); LYMPHOCYTES % 20.1 % (15.0-51.0); MEAN CORPUSCULAR HEMOGLOBIN 28.2 pg (29.0-33.0); MEAN CORPUSCULAR HGB CONC 31.9 g/dl (32.0-37.0); MEAN CORPUSCULAR VOLUME 88.3 fl (82.0-101.0); MEAN PLATELET VOLUME 8.2 fl (7.4-10.4); MONOCYTE # 0.4 10^3/ul (0.3-0.9); MONOCYTES % 8.8 % (0.0-11.0); NEUTROPHIL # 2.6 10^3/ul (1.6-7.5); NEUTROPHILS % 63.8 % (39.0-77.0); PLATELET COUNT 403 10^3/UL (140-415); RED BLOOD COUNT 3.16 10^6/ul (4.20-5.40); RED CELL DISTRIBUTION WIDTH 13.1 % (11.5-14.5)
[2017-11-02 06:31] LABS: ANION GAP 14 (8-16); BLOOD UREA NITROGEN 6 mg/dl (7-20); CALCIUM 9.3 mg/dl (8.4-10.2); CARBON DIOXIDE 28 mmol/L (21-31); CHLORIDE 102 mmol/L (97-110); GLUCOSE 98 mg/dl (70-220); MAGNESIUM 2.1 mg/dl (1.7-2.5); PHOSPHORUS 3.4 mg/dl (2.5-4.9); POTASSIUM 4.1 mmol/L (3.5-5.1); SODIUM 140 mmol/L (135-144)
[2017-11-02] MEDS: FLUCONAZOLE 200 MG TAB PO (10:48)
[2017-11-02] MEDS: DOCUSATE SODIUM 100 MG CAP PO ×2 (10:48→20:35)
[2017-11-02] MEDS: LEVETIRACETAM 500 MG TAB PO ×2 (10:48→20:35)
[2017-11-02] MEDS: FERROUS GLUCONATE (EC) 325 MG TAB PO (10:48)
[2017-11-02] MEDS: POLYETHYLENE GLYCOL 17 GM PACKET PO (10:49)
[2017-11-02] MEDS: SALMETEROL/FLUTICASONE 100/50 INHA INH ×2 (10:50→20:35)
[2017-11-02] MEDS: NA PHOSPHATE/BIPHOS 133 ML ENEMA PR ×2 (11:00→20:34)
[2017-11-02] MEDS: LACTULOSE 30ML CUP PO (11:00)
[2017-11-02] MEDS: BISACODYL 10 MG SUPP PR (15:52)
[2017-11-02] MEDS ORDERED: MAGNESIUM CITRATE 300 ML BTL PO (16:00)
[2017-11-02] MEDS: RANITIDINE 150 MG TAB PO (20:35)
[2017-11-02] MEDS: ALPRAZOLAM 0.25 MG TAB PO (22:05)
[2017-11-03] MEDS: HYDROCODONE/APAP (5/325) TAB PO ×3 (00:03→12:50)
[2017-11-03] MEDS: ALBUTEROL/IPRATROPIUM (NEB) 3 ML AMP HHN ×3 (01:37→14:11)
[2017-11-03 05:58] LABS: ADD MAN DIFF? NO
[2017-11-03 06:00] LABS: WHITE BLOOD COUNT 3.7 10^3/ul (4.8-10.8)
[2017-11-03 06:00] LABS: BASOPHILS % 1.1 % (0.0-2.0); EOSINOPHILS # 0.1 10^3/ul (0.0-0.5); EOSINOPHILS % 3.5 % (0.0-7.0); HEMATOCRIT 29.6 % (37.0-47.0); HEMOGLOBIN 9.6 g/dl (12.0-16.0); LYMPHOCYTES # 1.1 10^3/ul (0.8-2.9); LYMPHOCYTES % 28.9 % (15.0-51.0); MEAN CORPUSCULAR HEMOGLOBIN 28.6 pg (29.0-33.0); MEAN CORPUSCULAR HGB CONC 32.4 g/dl (32.0-37.0); MEAN CORPUSCULAR VOLUME 88.1 fl (82.0-101.0); MEAN PLATELET VOLUME 8.3 fl (7.4-10.4); MONOCYTE # 0.3 10^3/ul (0.3-0.9); MONOCYTES % 8.2 % (0.0-11.0); NEUTROPHIL # 2.1 10^3/ul (1.6-7.5); PLATELET COUNT 416 10^3/UL (140-415); RED BLOOD COUNT 3.36 10^6/ul (4.20-5.40); RED CELL DISTRIBUTION WIDTH 13.2 % (11.5-14.5)
[2017-11-03 06:28] LABS: ANION GAP 15 (8-16); BLOOD UREA NITROGEN 7 mg/dl (7-20); CALCIUM 9.8 mg/dl (8.4-10.2); CARBON DIOXIDE 31 mmol/L (21-31); CHLORIDE 102 mmol/L (97-110); CREATININE 0.67 mg/dl (0.44-1.00); GLUCOSE 99 mg/dl (70-220); MAGNESIUM 2.1 mg/dl (1.7-2.5); PHOSPHORUS 4.1 mg/dl (2.5-4.9); SODIUM 143 mmol/L (135-144)
[2017-11-03] MEDS: FERROUS GLUCONATE (EC) 325 MG TAB PO (08:26)
[2017-11-03] MEDS: LEVETIRACETAM 500 MG TAB PO (08:26)
[2017-11-03] MEDS: DOCUSATE SODIUM 100 MG CAP PO (08:26)
[2017-11-03] MEDS: FLUCONAZOLE 200 MG TAB PO (08:26)
[2017-11-03] MEDS: SALMETEROL/FLUTICASONE 100/50 INHA INH (08:27)
== END 2017-11-03 14:55 | disposition home or self-care (01) | DRG 166 ==
LOC: TEL 10-25 00:27 → MS2 10-29 00:54 → TEL 10-25 00:51 → E/R 11:03 → TEL 10-24 22:49 → MS2 12:26
PROC: 07B74ZX Excision of Thorax Lymphatic, Percutaneous Endoscopic Approach, Diagnostic (ICD-10-PCS; principal; 2017-10-24 15:30)
PROC: 0W9B40Z Drainage of Left Pleural Cavity with Drainage Device, Percutaneous Endoscopic Approach (ICD-10-PCS; 2017-10-24 15:30)
PROC: 0BB Respiratory System, Excision (ICD-10-PCS; 2017-10-24 15:30)
DX: J84.10 Pulmonary fibrosis, unspecified (principal); J18.9 Pneumonia, unspecified organism; J96.01 Acute respiratory failure with hypoxia; J44.0 Chronic obstructive pulmonary disease with (acute) lower respiratory infection; J44.1 Chronic obstructive pulmonary disease with (acute) exacerbation; G62.9 Polyneuropathy, unspecified; G40.909 Epilepsy, unspecified, not intractable, without status epilepticus; E04.9 Nontoxic goiter, unspecified; K59.00 Constipation, unspecified; E03.9 Hypothyroidism, unspecified; D64.9 Anemia, unspecified; Z80.0 Family history of malignant neoplasm of digestive organs; Z90.49 Acquired absence of other specified parts of digestive tract; Z87.891 Personal history of nicotine dependence; Z86.11 Personal history of tuberculosis; Z85.048 Personal history of other malignant neoplasm of rectum, rectosigmoid junction, and anus; Z85.038 Personal history of other malignant neoplasm of large intestine
CPT/HCPCS: 36415; 71045; 71250; 74018; 80048; 80053; 80061; 81001; 83036; 83540; 83605; 83735; 84100; 84439; 84443; 84484; 85025; 85610; 85730; 86635; 86850; 86900; 86901; 87040; 87045; 87070; 87075; 87081; 87086; 87102; 87116; 88309; 88312; 88331; 93005; 94640; 94664; 96365; 96366; 96367; 99285-25; J1940